=== PATIENT | female | born 1960 | race Caucasian/White ===

== ENCOUNTER → 2016-10-10 | Outpatient (REF) | payer MEDICARE, MEDICAID ==
[~2016-10-10] MED LIST: /PANT40TA OR; /SUCR1TA OR; COLA100C2 OR; COUM10TA OR; COUM1TAB OR; COUMADIN PO; DEPA500T2 OR; FERR325T OR; NEXI40GR PO; PRIL20CA PO; SIMV5TAB4 PO; TRAZ50TA OR
[2016-10-10 12:10] LABS: BASO % 0.7 % (0.0-1.0); EOS # 0.1 K/mm3 (0.0-0.50); EOS % 2.8 % (0.0-3.0); LARGE UNSTAINED CELL # 0.1 K/mm3 (0.0-0.4); LARGE UNSTAINED CELL % 2.6 % (0.0-4.0); LYMPH # 1.3 K/mm3 (1.5-4.5); LYMPH % 36.4 % (24.0-44.0); MEAN CORPUSCULAR HEMOGLOBIN 27.2 pg (27.0-33.0); MEAN CORPUSCULAR HGB CONC 31.8 g/dl (32.0-36.5); MEAN CORPUSCULAR VOLUME 85.5 fl (80.0-96.0); MONO # 0.2 K/mm3 (0.0-0.8); MONO % 5.7 % (0.0-5.0); NEUTROPHILS # 1.8 K/mm3 (1.8-7.7); NEUTROPHILS % 51.8 % (36.0-66.0); PLATELET COUNT, AUTOMATED 269 k/mm3 (150-450); WHITE BLOOD COUNT 3.5 K/mm3 (4.0-10.0)
== END ==
LOC: M SFHCPLAZ 09:44
PROVIDERS: ATTEND Nurse Practitioner Family
DX: D50.8 Other iron deficiency anemias (principal)

== ENCOUNTER → 2017-05-05 | Outpatient (REF) | payer MEDICARE, MEDICAID ==
[2017-05-05 11:16] LABS: BASO % 0.8 % (0.0-1.0); EOS # 0.1 K/mm3 (0.0-0.50); EOS % 2.2 % (0.0-3.0); LARGE UNSTAINED CELL # 0.1 K/mm3 (0.0-0.4); LYMPH # 1.4 K/mm3 (1.5-4.5); LYMPH % 39.7 % (24.0-44.0); MEAN CORPUSCULAR HEMOGLOBIN 27.4 pg (27.0-33.0); MEAN CORPUSCULAR HGB CONC 31.4 g/dl (32.0-36.5); MEAN CORPUSCULAR VOLUME 87.1 fl (80.0-96.0); MONO # 0.3 K/mm3 (0.0-0.8); MONO % 7.8 % (0.0-5.0); NEUTROPHILS # 1.6 K/mm3 (1.8-7.7); NEUTROPHILS % 47.5 % (36.0-66.0); PLATELET COUNT, AUTOMATED 301 k/mm3 (150-450); RED CELL DISTRIBUTION WIDTH 14.5 % (11.5-14.5); WHITE BLOOD COUNT 3.4 K/mm3 (4.0-10.0)
[2017-05-05 11:25] LABS: ALBUMIN 3.4 GM/DL (3.2-5.2); ALKALINE PHOSPHATASE 65 U/L (45-117); ALT/SGPT 17 U/L (12-78); ANION GAP 11 MEQ/L (8-16); AST/SGOT 15 U/L (15-37); BILIRUBIN,TOTAL 0.4 MG/DL (0.2-1.0); BLOOD UREA NITROGEN 14 MG/DL (7-18); CALCIUM LEVEL 8.3 MG/DL (8.5-10.1); CARBON DIOXIDE LEVEL 23 MEQ/L (21-32); CHLORIDE LEVEL 107 MEQ/L (98-107); CHOLESTEROL LEVEL 221 MG/DL (<200); CREATININE FOR GFR 0.43 MG/DL (0.55-1.02); GLOMERULAR FILTRATION RATE > 60.0 (>51); GLUCOSE, FASTING 83 MG/DL (70-105); POTASSIUM SERUM 4.4 MEQ/L (3.5-5.1); SODIUM LEVEL 141 MEQ/L (136-145); TOTAL PROTEIN 6.8 GM/DL (6.4-8.2); TRIGLYCERIDES LEVEL 82 MG/DL (<150)
== END ==
LOC: M SFHCPLAZ 08:48
PROVIDERS: ATTEND Nurse Practitioner Family
DX: D50.8 Other iron deficiency anemias (principal); E78.4 Other hyperlipidemia

== ENCOUNTER → 2017-05-12 | Outpatient (REF) | payer MEDICARE, MEDICAID | LOC: M SFHCPLAZ 15:43 | PROVIDERS: ATTEND Nurse Practitioner Family | DX: Z12.4 Encounter for screening for malignant neoplasm of cervix (principal); L85.9 Epidermal thickening, unspecified | CPT/HCPCS: G0123; G0463 ==

== ENCOUNTER → 2017-05-15 | Outpatient (CLI) | payer MEDICARE, MEDICAID ==
--- NOTE | 2017-05-15 16:03 | REP ---
Pelvic ultrasound balloon with transabdominal and endovaginal ultrasound assessment: The uterus is anteverted and slightly enlarged measuring 9.4 by 5.4 x 5.7 cm. Nabothian cysts are incidentally noted in the cervix. 3. A uterine fibroids are identified what on the left, intramural, measuring 1.3 cm, one on the right, intramural measuring 1.8 cm, and one anterior, subserosal, measuring 1.4 cm. The endometrium measures 15.1 mm thickness. The uterus heterogeneous with ill-defined borders. In a postmenopausal patient this endometrium is abnormally thickened. Therefore, consideration might be given to biopsy. The ovaries are normal size. Right ovary measures three bone 4 x 2.2 x 2.9 cm. Left ovary measures 2.5 1.9 x 2.6 cm. There are no dominant ovarian masses or cysts. No free fluid. Impression: The endometrium was then using thickened for a postmenopausal female. The patient is also consider lower endometrial biopsy. There are three fibroids as described. There are no adnexal masses or cysts.
== END ==
LOC: M WHC 12:35
PROVIDERS: ATTEND Nurse Practitioner Family
DX: N95.0 Postmenopausal bleeding (principal); D25.9 Leiomyoma of uterus, unspecified

== ENCOUNTER → 2017-10-14 | Outpatient (REF) | payer MEDICARE, MEDICAID ==
[2017-10-14 13:28] LABS: BASO % 0.5 % (0.0-1.0); EOS # 0.1 10^3/uL (0.0-0.50); EOS % 2.7 % (0.0-3.0); HEMATOCRIT 38.1 % (36.0-47.0); IMMATURE GRANULOCYTE % 0.2 % (0-0); LYMPH # 1.6 10^3/uL (1.5-4.5); MEAN CORPUSCULAR HGB CONC 31.5 g/dl (32.0-36.5); MONO # 0.3 10^3/uL (0.0-0.8); NEUTROPHILS # 2.1 10^3/uL (1.8-7.7); NEUTROPHILS % 50.6 % (36.0-66.0); PLATELET COUNT, AUTOMATED 243 10^3/uL (150-450); RED BLOOD COUNT 4.28 10^6/uL (4.00-5.40); RED CELL DISTRIBUTION WIDTH 15.5 % (11.5-14.5); WHITE BLOOD COUNT 4.1 10^3/uL (4.0-10.0)
[2017-10-14 13:54] LABS: ALBUMIN 3.5 GM/DL (3.2-5.2); ALBUMIN/GLOBULIN RATIO 0.95 (1.00-1.93); ALKALINE PHOSPHATASE 67 U/L (45-117); ALT/SGPT 17 U/L (12-78); ANION GAP 8 MEQ/L (8-16); AST/SGOT 13 U/L (7-37); BILIRUBIN,TOTAL 0.6 MG/DL (0.2-1.0); BLOOD UREA NITROGEN 11 MG/DL (7-18); CALCIUM LEVEL 9.3 MG/DL (8.5-10.1); CARBON DIOXIDE LEVEL 27 MEQ/L (21-32); CHLORIDE LEVEL 107 MEQ/L (98-107); CREATININE FOR GFR 0.49 MG/DL (0.55-1.02); GLOMERULAR FILTRATION RATE > 60.0 (>51); GLUCOSE, FASTING 84 MG/DL (70-105); IRON (FE) 52 UG/DL (50-170); POTASSIUM SERUM 4.2 MEQ/L (3.5-5.1); SODIUM LEVEL 142 MEQ/L (136-145); TOTAL PROTEIN 7.2 GM/DL (6.4-8.2)
== END ==
LOC: M SFHCPLAZ 11:08
DX: D50.8 Other iron deficiency anemias (principal); K21.9 Gastro-esophageal reflux disease without esophagitis; K22.719 Barrett's esophagus with dysplasia, unspecified; H61.21 Impacted cerumen, right ear; R93.8 Abnormal findings on diagnostic imaging of other specified body structures; Z86.718 Personal history of other venous thrombosis and embolism
CPT/HCPCS: 83540

== ENCOUNTER → 2017-10-21 | Outpatient (CLI) | payer MEDICARE, MEDICAID | LOC: M EKG 09:14 | DX: Z01.818 Encounter for other preprocedural examination (principal); N95.0 Postmenopausal bleeding; R93.5 Abnormal findings on diagnostic imaging of other abdominal regions, including retroperitoneum; Z86.718 Personal history of other venous thrombosis and embolism | CPT/HCPCS: 93005 ==

== ENCOUNTER 2017-10-26 05:53 | Day surgery (SDC) | payer MEDICARE, MEDICAID ==
[2017-10-26] MEDS ORDERED: LIDOCAINE 1% MDV 20ML VIAL SC (06:00)
[2017-10-26] MEDS: LR 1,000 ML IV (07:01)
[2017-10-26] MEDS ORDERED: dexameTHASONE 4 MG/ML 1ML VIAL (J1100) As Ordered (07:16)
[2017-10-26] MEDS ORDERED: LIDOCAINE 2% INJ 100 MG/5 ML SDV (FOR ANES.) As Ordered (07:16)
[2017-10-26] MEDS ORDERED: PROPOFOL 200 MG/20 ML VIAL As Ordered (07:16)
[2017-10-26] MEDS ORDERED: KETOROLAC 60 MG/2 ML VIAL (J1885) As Ordered (07:16)
[2017-10-26] MEDS ORDERED: fentaNYL 100 MCG/2 ML INJECTION (J3010) As Ordered (07:16)
[2017-10-26] MEDS ORDERED: MIDAZOLAM INJ 2 MG/2 ML VIAL (J2250) As Ordered (07:16)
[2017-10-26] MEDS ORDERED: ONDANSETRON 4MG/2ML VIAL (J2405) As Ordered (07:17)
[2017-10-26] MEDS ORDERED: PERCOCET 5MG/325MG TAB PO (09:00)
[2017-10-26] MEDS ORDERED: METOCLOPRAMIDE INJ 10MG/2ML VIAL (J2765) IV (09:00)
[2017-10-26] MEDS ORDERED: HYDROmorphone HCL 1 MG/ML SYRINGE (J1170) IV (09:00)
[2017-10-26] MEDS ORDERED: ONDANSETRON 4MG/2ML VIAL (J2405) IV (09:00)
[2017-10-26] MEDS ORDERED: IBUPROFEN 600 MG TAB PO (09:00)
[2017-10-26] MEDS ORDERED: LR 1,000 ML IV ×2 (09:00)
[2017-10-26] MEDS ORDERED: fentaNYL 100 MCG/2 ML INJECTION (J3010) IV (09:00)
== END 2017-10-26 10:02 | disposition home or self-care (01) ==
LOC: M SDC 05:53
DX: N95.0 Postmenopausal bleeding (principal); R93.8 Abnormal findings on diagnostic imaging of other specified body structures; N84.0 Polyp of corpus uteri; E78.4 Other hyperlipidemia; K21.9 Gastro-esophageal reflux disease without esophagitis; D50.8 Other iron deficiency anemias; K22.719 Barrett's esophagus with dysplasia, unspecified; K44.9 Diaphragmatic hernia without obstruction or gangrene; Z88.0 Allergy status to penicillin; Z79.899 Other long term (current) drug therapy; Z86.718 Personal history of other venous thrombosis and embolism; Z78.0 Asymptomatic menopausal state; Z87.81 Personal history of (healed) traumatic fracture
CPT/HCPCS: 58558

== ENCOUNTER 2018-08-02 07:18 | Day surgery (SDC) | payer MEDICARE, MEDICAID ==
[2018-08-02] MEDS: NS 1,000 ML IV (07:30)
[2018-08-02] MEDS ORDERED: LIDOCAINE 2% INJ 100 MG/5 ML SDV (FOR ANES.) As Ordered (07:46)
[2018-08-02] MEDS ORDERED: PROPOFOL 200 MG/20 ML VIAL As Ordered (07:46)
[2018-08-02] MEDS ORDERED: fentaNYL 100 MCG/2 ML INJECTION (J3010) As Ordered (08:44)
== END 2018-08-02 09:22 | disposition home or self-care (01) ==
LOC: M OPP 07:18
DX: K22.8 Other specified diseases of esophagus (principal); K44.9 Diaphragmatic hernia without obstruction or gangrene; K31.9 Disease of stomach and duodenum, unspecified; K22.70 Barrett's esophagus without dysplasia; R12 Heartburn; Z79.899 Other long term (current) drug therapy; Z88.0 Allergy status to penicillin; Z86.718 Personal history of other venous thrombosis and embolism
CPT/HCPCS: 43239

== ENCOUNTER → 2018-08-05 | Outpatient (CLI) | payer MEDICARE, MEDICAID | LOC: M WHC 13:13 | DX: N95.2 Postmenopausal atrophic vaginitis (principal); Z78.0 Asymptomatic menopausal state | CPT/HCPCS: 77080 ==

== ENCOUNTER → 2018-08-25 | Outpatient (REF) | payer MEDICARE, MEDICAID | LOC: M SFHCPLAZ 09:26 | DX: J02.9 Acute pharyngitis, unspecified (principal) ==

== ENCOUNTER → 2018-11-17 | Outpatient (REF) | payer MEDICARE, MEDICAID ==
[~2018-11-17] MED LIST changes: +FERROUS GLUCONATE PO; +NEXI40CA PO; +SIMV10TA2 PO
[2018-11-17 13:03] LABS: ALBUMIN 3.4 GM/DL (3.2-5.2); ALT/SGPT 17 U/L (12-78); BILIRUBIN,TOTAL 0.3 MG/DL (0.2-1.0); BLOOD UREA NITROGEN 14 MG/DL (7-18); CARBON DIOXIDE LEVEL 26 MEQ/L (21-32); CHLORIDE LEVEL 109 MEQ/L (98-107); CHOLESTEROL LEVEL 229 MG/DL (<200); CHOLESTEROL RISK RATIO 2.632 (<5); CREATININE FOR GFR 0.66 MG/DL (0.55-1.30); FREE T4 0.89 NG/DL (0.76-1.46); GLOMERULAR FILTRATION RATE > 60.0 (>51); GLUCOSE, FASTING 101 MG/DL (70-100); HDL CHOLESTEROL 87 MG/DL (>40); HEMATOCRIT 35.6 % (36.0-47.0); HEMOGLOBIN 10.3 g/dl (12.0-15.5); LDL CHOLESTEROL 124 MG/DL (<100); MEAN CORPUSCULAR HEMOGLOBIN 23.4 pg (27.0-33.0); MEAN CORPUSCULAR HGB CONC 28.9 g/dl (32.0-36.5); MEAN CORPUSCULAR VOLUME 80.9 fl (80.0-96.0); NON-HDL-C 142 MG/DL; PLATELET COUNT, AUTOMATED 340 10^3/uL (150-450); POTASSIUM SERUM 4.3 MEQ/L (3.5-5.1); SODIUM LEVEL 141 MEQ/L (136-145); THYROID STIMULATING HORMONE 0.933 uIU/ML (0.358-3.740); TOTAL PROTEIN 6.8 GM/DL (6.4-8.2); TRIGLYCERIDES LEVEL 88 MG/DL (<150); WHITE BLOOD COUNT 3.3 10^3/uL (4.0-10.0)
== END ==
LOC: M SFHCPLAZ 08:59
PROVIDERS: ATTEND Physician Assistant
DX: D50.8 Other iron deficiency anemias (principal); E78.49 Other hyperlipidemia

== ENCOUNTER → 2018-12-15 | Outpatient (REF) | payer MEDICARE, MEDICAID ==
[~2018-12-15] MED LIST changes: -/PANT40TA OR; -/SUCR1TA OR; +PROT1TAB2 OR; +SUCR1TAB56 OR
[2018-12-15 13:15] LABS: FOLATE 7.3 NG/ML (>5.4); PERCENT SATURATION 10.2 % (13.2-45.0)
== END ==
LOC: M SFHCPLAZ 09:40
PROVIDERS: ATTEND Physician Assistant
DX: D50.8 Other iron deficiency anemias (principal)
CPT/HCPCS: 36415; 82607; 82728; 82746; 83550; 85046; G0463

== ENCOUNTER → 2019-03-15 | Outpatient (REF) | payer MEDICARE, MEDICAID ==
[2019-03-15 10:51] LABS: HEMATOCRIT 35.5 % (36.0-47.0); HEMOGLOBIN 10.6 g/dl (12.0-15.5); MEAN CORPUSCULAR HGB CONC 29.9 g/dl (32.0-36.5); MEAN CORPUSCULAR VOLUME 80.3 fl (80.0-96.0); PLATELET COUNT, AUTOMATED 347 10^3/uL (150-450); RED BLOOD COUNT 4.42 10^6/uL (4.00-5.40)
[2019-03-15 11:28] LABS: ALBUMIN 3.5 GM/DL (3.2-5.2); ALT/SGPT 30 U/L (12-78); BILIRUBIN,TOTAL 0.4 MG/DL (0.2-1.0); BLOOD UREA NITROGEN 12 MG/DL (7-18); CALCIUM LEVEL 9.1 MG/DL (8.5-10.1); CARBON DIOXIDE LEVEL 25 MEQ/L (21-32); CHLORIDE LEVEL 108 MEQ/L (98-107); CHOLESTEROL LEVEL 202 MG/DL (<200); CHOLESTEROL RISK RATIO 2.295 (<5); CREATININE FOR GFR 0.65 MG/DL (0.55-1.30); GLOMERULAR FILTRATION RATE > 60.0 (>51); GLUCOSE, FASTING 90 MG/DL (70-100); HDL CHOLESTEROL 88 MG/DL (>40); LDL CHOLESTEROL 97 MG/DL (<100); NON-HDL-C 114 MG/DL; POTASSIUM SERUM 3.7 MEQ/L (3.5-5.1); SODIUM LEVEL 140 MEQ/L (136-145); TOTAL PROTEIN 7.1 GM/DL (6.4-8.2); TRIGLYCERIDES LEVEL 83 MG/DL (<150)
== END ==
LOC: M SFHCPLAZ 08:31
PROVIDERS: ATTEND Nurse Practitioner Adult Health
DX: D50.8 Other iron deficiency anemias (principal); E78.49 Other hyperlipidemia

== ENCOUNTER → 2019-09-16 | Outpatient (REF) | payer MEDICARE, MEDICAID ==
[~2019-09-16] MED LIST changes: -SIMV10TA2 PO; +SIMV10TA21 PO
[2019-09-16 12:20] LABS: AMORPHOUS SEDIMENT SMALL (NEGATIVE); APPEARANCE, URINE HAZY (CLEAR); BACTERIA, URINE AUTO 1+ (NEGATIVE); BILIRUBIN, URINE AUTO NEGATIVE (NEGATIVE); BLOOD, URINE BLOOD NEGATIVE (NEGATIVE); COLOR, URINE YELLOW (YELLOW); GLUCOSE, URINE (UA) AUTO NEGATIVE (NEGATIVE); KETONE, URINE AUTO TRACE mg/dL (NEGATIVE); LEUKOCYTE ESTERASE, URINE AUTO 2+ (NEGATIVE); MUCUS, URINE SMALL (NEGATIVE); NITRITE, URINE AUTO NEGATIVE (NEGATIVE); PROTEIN, URINE AUTO NEGATIVE (NEGATIVE); RBC, URINE AUTO 7 /HPF (0-3); SPECIFIC GRAVITY URINE AUTO 1.026 (1.002-1.035); SQUAMOUS EPITHELIAL CELL UR AU 1 /HPF (0-6); UROBILINOGEN, URINE AUTO 0.2 mg/dL (0.0-2.0); WBC, URINE AUTO 21 /HPF (0-3)
== END ==
LOC: M LAB REF 11:52
PROVIDERS: ATTEND Obstetrics & Gynecology
DX: R39.89 Other symptoms and signs involving the genitourinary system (principal)

== ENCOUNTER → 2020-06-19 | Outpatient (CLI) | payer MEDICARE, MEDICAID ==
[2020-06-19 13:56] LABS: HEMATOCRIT 36.6 % (36.0-47.0); HEMOGLOBIN 11.5 g/dl (12.0-15.5); MEAN CORPUSCULAR HEMOGLOBIN 28.5 pg (27.0-33.0); MEAN CORPUSCULAR HGB CONC 31.4 g/dl (32.0-36.5); MEAN CORPUSCULAR VOLUME 90.8 fl (80.0-96.0); PLATELET COUNT, AUTOMATED 293 10^3/uL (150-450); RED BLOOD COUNT 4.03 10^6/uL (4.00-5.40); WHITE BLOOD COUNT 3.4 10^3/uL (4.0-10.0)
[2020-06-19 14:09] LABS: ALBUMIN 3.4 GM/DL (3.2-5.2); ALT/SGPT 21 U/L (12-78); BILIRUBIN,TOTAL 0.4 MG/DL (0.2-1.0); BLOOD UREA NITROGEN 12 MG/DL (7-18); CALCIUM LEVEL 8.8 MG/DL (8.5-10.1); CARBON DIOXIDE LEVEL 26 MEQ/L (21-32); CHLORIDE LEVEL 111 MEQ/L (98-107); CHOLESTEROL LEVEL 212 MG/DL (<200); CHOLESTEROL RISK RATIO 2.231 (<5); CREATININE FOR GFR 0.58 MG/DL (0.55-1.30); FERRITIN 7 NG/ML (8-252); GLOMERULAR FILTRATION RATE > 60.0 (>51); GLUCOSE, FASTING 88 MG/DL (70-100); HDL CHOLESTEROL 95 MG/DL (>40); IRON (FE) 43 UG/DL (50-170); LDL CHOLESTEROL 103 MG/DL (<100); NON-HDL-C 117 MG/DL; PERCENT SATURATION 11.3 % (13.2-45.0); POTASSIUM SERUM 4.2 MEQ/L (3.5-5.1); SODIUM LEVEL 141 MEQ/L (136-145); TOTAL IRON BINDING CAPACITY 381 UG/DL (250-450); TOTAL PROTEIN 6.6 GM/DL (6.4-8.2); TRIGLYCERIDES LEVEL 68 MG/DL (<150)
[2020-06-19 14:13] LABS: FOLATE 8.4 NG/ML (>5.4)
== END ==
LOC: M PLALAB 09:37
PROVIDERS: ATTEND Nurse Practitioner Adult Health
DX: Z00.00 Encounter for general adult medical examination without abnormal findings (principal); D50.8 Other iron deficiency anemias; E78.49 Other hyperlipidemia

== ENCOUNTER → 2021-05-02 | Outpatient (REF) | payer MEDICARE, MEDICAID | LOC: M SFHCPLAZ 16:27 | PROVIDERS: ATTEND Physician Assistant | DX: L72.3 Sebaceous cyst (principal) | CPT/HCPCS: 87070; 87077; 87186; G0463 ==

== ENCOUNTER → 2021-07-16 | Outpatient (CLI) | payer MEDICARE, MEDICAID ==
[2021-07-16 13:58] LABS: HEMATOCRIT 34.5 % (36.0-47.0); HEMOGLOBIN 10.3 g/dl (12.0-15.5); MEAN CORPUSCULAR HEMOGLOBIN 24.4 pg (27.0-33.0); MEAN CORPUSCULAR HGB CONC 29.9 g/dl (32.0-36.5); MEAN CORPUSCULAR VOLUME 81.8 fl (80.0-96.0); PLATELET COUNT, AUTOMATED 371 10^3/uL (150-450); RED BLOOD COUNT 4.22 10^6/uL (4.00-5.40); WHITE BLOOD COUNT 4.2 10^3/uL (4.0-10.0)
[2021-07-16 14:29] LABS: ALBUMIN 3.6 GM/DL (3.2-5.2); ALT/SGPT 20 U/L (12-78); BILIRUBIN,TOTAL 0.3 MG/DL (0.2-1.0); BLOOD UREA NITROGEN 12 MG/DL (7-18); CALCIUM LEVEL 9.4 MG/DL (8.8-10.2); CARBON DIOXIDE LEVEL 27 MEQ/L (21-32); CHLORIDE LEVEL 110 MEQ/L (98-107); CHOLESTEROL LEVEL 219 MG/DL (<200); CHOLESTEROL RISK RATIO 2.257 (<5); CREATININE FOR GFR 0.73 MG/DL (0.55-1.30); FERRITIN 8 NG/ML (8-252); GLOMERULAR FILTRATION RATE > 60.0 (>45); GLUCOSE, FASTING 94 MG/DL (70-100); HDL CHOLESTEROL 97 MG/DL (>40); IRON (FE) 24 UG/DL (50-170); LDL CHOLESTEROL 99 MG/DL (<100); NON-HDL-C 122 MG/DL; PERCENT SATURATION 5.5 % (13.2-45.0); POTASSIUM SERUM 4.4 MEQ/L (3.5-5.1); SODIUM LEVEL 142 MEQ/L (136-145); TOTAL IRON BINDING CAPACITY 434 UG/DL (250-450); TOTAL PROTEIN 6.9 GM/DL (6.4-8.2); TRIGLYCERIDES LEVEL 113 MG/DL (<150)
[2021-07-16 14:36] LABS: TOTAL 25(OH) VITAMIN D 16.9 NG/ML (30.0-100.0)
== END ==
LOC: M PLALAB 09:49
PROVIDERS: ATTEND Nurse Practitioner Adult Health
DX: D50.9 Iron deficiency anemia, unspecified (principal); E78.2 Mixed hyperlipidemia; Z00.00 Encounter for general adult medical examination without abnormal findings; E55.9 Vitamin D deficiency, unspecified; Z79.899 Other long term (current) drug therapy

== ENCOUNTER → 2021-10-28 | Outpatient (REF) | LOC: M LABSMTC 09:17 | PROVIDERS: ATTEND Pediatrics | DX: Z11.52 Encounter for screening for COVID-19 (principal); Z20.822 Contact with and (suspected) exposure to COVID-19 ==

== ENCOUNTER → 2021-12-10 | Outpatient (REF) | payer MEDICARE | LOC: M SFHCPLAZ 16:51 | PROVIDERS: ATTEND Physician Assistant | DX: R05.9 Cough, unspecified (principal) ==

== ENCOUNTER → 2022-07-23 | Outpatient (CLI) | payer MEDICAID, MEDICARE ==
[2022-07-23 14:01] LABS: HEMATOCRIT 36.6 % (36.0-47.0); MEAN CORPUSCULAR HEMOGLOBIN 25.9 pg (27.0-33.0); MEAN CORPUSCULAR HGB CONC 30.1 g/dl (32.0-36.5); MEAN CORPUSCULAR VOLUME 86.3 fl (80.0-96.0); PLATELET COUNT, AUTOMATED 324 10^3/uL (150-450); RED BLOOD COUNT 4.24 10^6/uL (4.00-5.40); WHITE BLOOD COUNT 3.6 10^3/uL (4.0-10.0)
[2022-07-23 17:06] LABS: ALBUMIN 3.4 GM/DL (3.2-5.2); ALT/SGPT 19 U/L (12-78); BILIRUBIN,TOTAL 0.5 MG/DL (0.2-1.0); BLOOD UREA NITROGEN 15 MG/DL (7-18); CALCIUM LEVEL 9.2 MG/DL (8.8-10.2); CARBON DIOXIDE LEVEL 26 MEQ/L (21-32); CHLORIDE LEVEL 106 MEQ/L (98-107); CHOLESTEROL LEVEL 230 MG/DL (<200); CHOLESTEROL RISK RATIO 2.555 (<5); FERRITIN 10 NG/ML (8-252); GLOMERULAR FILTRATION RATE > 60.0 (>45); GLUCOSE, FASTING 94 MG/DL (70-100); HDL CHOLESTEROL 90 MG/DL (>40); IRON (FE) 46 UG/DL (50-170); LDL CHOLESTEROL 119 MG/DL (<100); NON-HDL-C 140 MG/DL; SODIUM LEVEL 138 MEQ/L (136-145); TOTAL PROTEIN 6.8 GM/DL (6.4-8.2); TRIGLYCERIDES LEVEL 104 MG/DL (<150)
[2022-07-23 18:26] LABS: TOTAL 25(OH) VITAMIN D 17.1 NG/ML (30.0-100.0)
== END ==
LOC: M PLALAB 08:54
PROVIDERS: ATTEND Nurse Practitioner Adult Health
DX: E78.2 Mixed hyperlipidemia (principal); D50.8 Other iron deficiency anemias; E55.9 Vitamin D deficiency, unspecified; Z79.899 Other long term (current) drug therapy

== ENCOUNTER → 2023-08-13 | Outpatient (CLI) | payer MEDICARE ==
[2023-08-13 14:25] LABS: HEMATOCRIT 36.3 % (36.0-47.0); HEMOGLOBIN 11.4 g/dl (12.0-15.5); MEAN CORPUSCULAR HEMOGLOBIN 27.4 pg (27.0-33.0); MEAN CORPUSCULAR HGB CONC 31.4 g/dl (32.0-36.5); MEAN CORPUSCULAR VOLUME 87.3 fl (80.0-96.0); PLATELET COUNT, AUTOMATED 319 10^3/uL (150-450); RED BLOOD COUNT 4.16 10^6/uL (4.00-5.40); WHITE BLOOD COUNT 4.3 10^3/uL (4.0-10.0)
[2023-08-13 14:54] LABS: IRON (FE) 263 UG/DL (50-170)
[2023-08-13 14:57] LABS: ALBUMIN 3.4 G/DL (3.2-5.2); ALKALINE PHOSPHATASE 64 U/L (46-116); ALT/SGPT 17 U/L (7.0-40); AST/SGOT 12 U/L (<34); BILIRUBIN,TOTAL 0.3 MG/DL (0.3-1.2); BLOOD UREA NITROGEN 16 MG/DL (9-23); CALCIUM LEVEL 9.6 MG/DL (8.3-10.6); CARBON DIOXIDE LEVEL 29 MMOL/L (20-31); CHLORIDE LEVEL 104 MMOL/L (98-107); CHOLESTEROL LEVEL 207 MG/DL (<200); CREATININE FOR GFR 0.65 MG/DL (0.55-1.30); GLOMERULAR FILTRATION RATE > 60.0 (>45); GLUCOSE, FASTING 90 MG/DL (74-106); HDL CHOLESTEROL 82.6 MG/DL (>40); NON-HDL-C 124.4 MG/DL; POTASSIUM SERUM 3.9 MMOL/L (3.5-5.1); SODIUM LEVEL 139 MMOL/L (136-145); TOTAL 25(OH) VITAMIN D 17.9 NG/ML (20.0-100.0); TOTAL PROTEIN 6.5 G/DL (5.7-8.2); TRIGLYCERIDES LEVEL 102 MG/DL (<150); VITAMIN B12 LEVEL 390 PG/ML (211-911)
== END ==
LOC: M PLALAB 10:52
PROVIDERS: ATTEND Nurse Practitioner Adult Health
DX: D50.8 Other iron deficiency anemias (principal); E78.2 Mixed hyperlipidemia; E55.9 Vitamin D deficiency, unspecified

== ENCOUNTER → 2024-01-07 | Outpatient (CLI) | payer MEDICARE | LOC: M PLAIMG 09:33 | PROVIDERS: ATTEND Nurse Practitioner Adult Health | DX: R60.0 Localized edema (principal); R01.1 Cardiac murmur, unspecified ==

== ENCOUNTER → 2024-08-10 | Outpatient (REF) | payer MEDICARE ==
[2024-08-10 15:20] LABS: HEMOGLOBIN 11.2 g/dl (12.0-15.5); MEAN CORPUSCULAR HEMOGLOBIN 23.9 pg (27.0-33.0); MEAN CORPUSCULAR HGB CONC 29.5 g/dl (32.0-36.5); MEAN CORPUSCULAR VOLUME 81.2 fl (80.0-96.0); PLATELET COUNT, AUTOMATED 357 10^3/uL (150-450); RED BLOOD COUNT 4.68 10^6/uL (4.00-5.40); WHITE BLOOD COUNT 4.7 10^3/uL (4.0-10.0)
[2024-08-10 15:24] LABS: ALBUMIN 3.8 G/DL (3.2-5.2); ALKALINE PHOSPHATASE 69 U/L (35-104); ALT/SGPT 17 U/L (7.0-40); AST/SGOT 11 U/L (<34); BILIRUBIN,TOTAL 0.3 MG/DL (0.3-1.2); BLOOD UREA NITROGEN 16 MG/DL (9-23); CALCIUM LEVEL 9.8 MG/DL (8.3-10.6); CARBON DIOXIDE LEVEL 27 MMOL/L (20-31); CHLORIDE LEVEL 108 MMOL/L (98-107); CREATININE FOR GFR 0.68 MG/DL (0.55-1.30); GLOMERULAR FILTRATION RATE > 60.0 (>45); GLUCOSE, FASTING 95 MG/DL (74-106); IRON (FE) 24 UG/DL (50-170); POTASSIUM SERUM 4.2 MMOL/L (3.5-5.1); SODIUM LEVEL 140 MMOL/L (136-145); TOTAL IRON BINDING CAPACITY 397 UG/DL (250-425); TOTAL PROTEIN 7.2 G/DL (5.7-8.2)
== END ==
LOC: M SFHCPLAZ 09:31
PROVIDERS: ATTEND Nurse Practitioner Adult Health
DX: Z00.00 Encounter for general adult medical examination without abnormal findings (principal); E78.2 Mixed hyperlipidemia; D50.8 Other iron deficiency anemias; E55.9 Vitamin D deficiency, unspecified

== ENCOUNTER → 2025-07-25 | Outpatient (REF) | payer MEDICARE | LOC: M SFHCPLAZ 12:58 | PROVIDERS: ATTEND Nurse Practitioner Adult Health | DX: R09.89 Other specified symptoms and signs involving the circulatory and respiratory systems (principal) ==

== ENCOUNTER → 2025-07-26 | Outpatient (CLI) | payer MEDICARE | LOC: M WUC 08:07 | PROVIDERS: ATTEND Nurse Practitioner Adult Health | DX: R06.02 Shortness of breath (principal); K44.9 Diaphragmatic hernia without obstruction or gangrene ==